=== PATIENT | female | born 1970 | race Caucasian/White ===

== ENCOUNTER 2019-06-09 10:21 | Inpatient (IN) | payer OTHER ==
[~2019-06-09] VITALS: Ht 160 cm; Wt 99.3 kg
[2019-06-09 10:25] VITALS: BP 141/89
--- NOTE | 2019-06-09 10:25 | NUR ---
PT INITIALLY VERBALLY ABUSIVE THE STAFF. SHE WAS INFORMED THIS WILL NOT BE TOLERATED. SHE VOICED UNDERSTANDING.
[2019-06-09 11:02] LABS: BASO % 0.6 % (0.0-1.0); EOS # 0.1 10*3/uL (0.0-0.4); EOS % 1.2 % (1.0-4.0); HEMATOCRIT 42.2 % (37.0-47.0); LYMPH # 1.6 10*3/uL (1.3-4.4); LYMPH % 23.8 % (27.0-41.0); MEAN CELL VOLUME 91.1 fl (81.0-99.0); MEAN CORPUSCULAR HGB 29.6 pg (27.0-31.0); MEAN CORPUSCULAR HGB CONC 32.5 g/dl (33.0-37.0); MEAN PLATELET VOLUME 9.2 fl (9.6-12.3); MONO # 0.2 10*3/uL (0.1-1.0); MONO % 3.3 % (3.0-9.0); NEUT # 4.7 10*3/uL (2.3-7.9); NEUT % 70.6 % (47.0-73.0); PLATELET COUNT AUTOMATED 398 10*3/uL (130-400); RED BLOOD COUNT 4.63 10*6/uL (4.10-5.10); RED CELL DISTRI WIDTH 13.2 % (0-14.5); WHITE BLOOD COUNT 6.7 10*3/uL (4.8-10.8)
[2019-06-09 11:12] LABS: ALBUMIN 3.1 gm/dl (3.1-4.5); ALKALINE PHOSPHATASE 63 U/L (45-117); BUN 9 mg/dl (7-24); CHLORIDE 110 mmol/L (98-107); CREATININE 0.82 mg/dL (0.55-1.02); LIPASE 46 U/L (73-393); POTASSIUM 4.2 mmol/L (3.5-5.1); SGOT/AST 14 IU/L (3-35); SGPT/ALT 21 U/L (12-78); SODIUM 139 mmol/L (136-145)
[2019-06-09 11:17] LABS: ACT PARTIAL THROMBO TIME 27.7 SECONDS (20.0-32.1); INTERNATIONAL NORM RATIO 0.9 (2.0-3.5)
--- NOTE | 2019-06-09 11:30 | NUR ---
PAIN IS BETTER AFTER MEDS.
--- NOTE | 2019-06-09 11:49 | NUR ---
AWAITING CULTURE DRAW TO HANG THE [facility]... NURSE KIE[facility] AT [facility]... OTHER ORDERED MEDS GIVEN. PATIENT REPORTS SPASM TO STOMACH. IN MODERATE DISTRESS. SAYS SHE HASN'T HAD A BM SINCE MONDAY AND SAYS STOMACH FEELS FULL OF GAS
--- NOTE | 2019-06-09 12:28 | NUR ---
MEDICATED WITH MORPHINE ORDERED FOR INCREASED PAIN.
[2019-06-09 12:30] VITALS: BP 117/74
--- NOTE | 2019-06-09 14:26 | NUR ---
REPORT TO MICHAEL. SHE WAS NOTIFIED PT WAS JUST MEDICATED WITH DILAUDID PRIOR TO BEING BROUGHT TO THE FLOOR.
[2019-06-09 14:30] VITALS: BP 119/66
--- NOTE | 2019-06-09 14:30 | NUR ---
Time: 1429 A 49 year old FEMALE admitted to 4E under services of ANDRESSA AN DO. Pt. arrived via stretcher from ER. Chief complaint: ABD PAIN . ALTAGRACIA AHUMADA
[2019-06-09] MEDS ORDERED: ZANAFLEX4 MG PO (14:59)
[2019-06-09] MEDS ORDERED: LIPITOR20 MG PO (15:01)
[2019-06-09] MEDS ORDERED: TRAZODONE150 MG PO (15:02)
[2019-06-09] MEDS ORDERED: MELOXICAM7.5 MG PO (15:02)
[2019-06-09] MEDS ORDERED: SYNTHROID25 MCG PO (15:04)
[2019-06-09] MEDS ORDERED: TRINTELLIX10 MG PEG (15:04)
[2019-06-09] MEDS ORDERED: METFORMIN HYD1000 MG PO (15:05)
[2019-06-09] MEDS ORDERED: METFORMIN HYDR500 MG PO (15:06)
[2019-06-09] MEDS ORDERED: ATIVAN1 MG PO (15:07)
[2019-06-09] MEDS ORDERED: VITAMIN D22000 UNIT PO (15:09)
--- NOTE | 2019-06-09 15:36 | NUR ---
SPOKE WITH DR BENNETT REGARDING CONSULT
--- NOTE | 2019-06-09 19:59 | NUR ---
NOTIFIED OF TEMP 101.2 AND ONLY ORAL TYLENOL ON. PER , PT IS TO HAVE ABSOLUTELY NOTHING BY MOUTH. NEW ORDER RECEIVED FOR RECTAL TYLENOL.
[2019-06-09 20:00] VITALS: BP 127/74
--- NOTE | 2019-06-09 20:40 | NUR ---
SPOKE WITH DR SIM REGARDING PATIENT CRYING IN PAIN AND MORPHINE NOT EFFECTIVE. STATES TO ORDER DILAUDID 1MG Q4H PRN. AND TO KEEP MORPHINE ORDER WELL
--- NOTE | 2019-06-09 21:00 | NUR ---
IV DILAUDID ADMINSTERED PER PRN ORDER FOR C/O ABD PAIN 11/29. MORPHINE INEFFECTIVE. WILL MONITOR EFFECTIVENESS. RECTAL TYLENOL ALSO ADMINISTERED FOR TEMP 101.2. WILL MONITOR EFFECTIVENESS. WET WASHCLOTHS & MOUTH SWABS PROVIDED PER REQUEST. PT REMINDED OF NEEDING URINE SAMPLE FOR UA^UC. CUP PLACED IN BATHROOM.
[2019-06-09 21:46] LABS: BILIRUBIN NEGATIVE (NEGATIVE); BLOOD 1+ (NEGATIVE); CLARITY CLOUDY (CLEAR); COLOR YELLOW (YELLOW); GLUCOSE NEGATIVE (NEGATIVE); KETONE NEGATIVE (NEGATIVE); NITRITE NEGATIVE (NEGATIVE); UROBILINOGEN 0.2 E.U./dl (0.2-1.0)
[2019-06-09 21:56] LABS: LEUKO ESTERASE NEGATIVE (NEGATIVE)
--- NOTE | 2019-06-09 22:07 | NUR ---
DAUGHTER CALLED IN WITH PASS CODE. UPDATED ON PLAN OF CARE.
--- NOTE | 2019-06-09 23:08 | NUR ---
REPEAT TEMP 98.9. EARLIER TYLENOL EFFECTIVE. EARLIER DILAUDID ALSO EFFECTIVE, PT RATING ABD PAIN 08/29. WILL MONITOR. CALL LIGHT IN REACH.
[2019-06-10] VITALS: BP 109/48
--- NOTE | 2019-06-10 00:05 | NUR ---
IV MORPHINE ADMINISTERED PER ORDER FOR C/O PAIN IN ABDOMEN RATED 7/10. WILL MONITOR, CALL LIGHT IN REACH.
--- NOTE | 2019-06-10 02:15 | NUR ---
EARLIER MORPHINE INEFFECTIVE PER PT. PT RATING ABD PAIN 10/30. IV DILAUDID ADMINISTERED PER PRN ORDER. IV ZOSYN INFUSION INITIATED. WILL MONITOR. CALL LIGHT IN REACH.
[2019-06-10 06:05] LABS: MEAN CELL VOLUME 91.8 fl (81.0-99.0); MEAN CORPUSCULAR HGB CONC 32.6 g/dl (33.0-37.0); MEAN PLATELET VOLUME 9.7 fl (9.6-12.3); PLATELET COUNT AUTOMATED 362 10*3/uL (130-400); RED BLOOD COUNT 4.14 10*6/uL (4.10-5.10); RED CELL DISTRI WIDTH 13.6 % (0-14.5); WHITE BLOOD COUNT 22.9 10*3/uL (4.8-10.8)
[2019-06-10 06:14] LABS: BUN 11 mg/dl (7-24); CHLORIDE 108 mmol/L (98-107); CHOLESTEROL 161 mg/dL (<200); CREATININE 0.92 mg/dL (0.55-1.02); HDL CHOLESTEROL 33 mg/dl (40-60); LDL CHOLESTEROL 107 mg/dL (9-159); POTASSIUM 3.6 mmol/L (3.5-5.1); SODIUM 138 mmol/L (136-145); TRIGLYCERIDES 107 mg/dl (<150); VLDL CHOLESTEROL 21 mg/dL (6-40)
[2019-06-10 06:35] LABS: ACT PARTIAL THROMBO TIME 31.3 SECONDS (20.0-32.1); INTERNATIONAL NORM RATIO 1.1 (2.0-3.5)
[2019-06-10 06:38] LABS: PLATELET SUFFICIENCY NORMAL (NORMAL); POLYCHROMASIA SLIGHT; TOTAL CELLS COUNTED 100 #CELLS
[2019-06-10 07:06] LABS: VITAMIN D, 25-HYDROXY 45.2 ng/mL (30-100)
--- NOTE | 2019-06-10 07:38 | NUR ---
PT REQUESTED AND GIVEN DILAUDID FOR C/O ABD PAIN . PT RATES PAIN 8/ WILL MONITOR
[2019-06-10 08:00] VITALS: BP 132/69
--- NOTE | 2019-06-10 09:00 | NUR ---
Oncology Physician Assistant in to talk to patient. Patient states lives at home with . There are no steps in the home. Physician: buck howard Pharmacy: [email or web address] Home health services: none Patient's level of ADLs: INDEPENDENT Patient has working utilities: all working DME: none Follow-up physician's appointment after d/c: will be made by hospsitalist nurse director upon discharge Does patient want to access PORTAL?: no Discharge plan discussed with patient, she lives at home with her hsuband, she states she is independent in adls and ambulation, works, drives, she states she will return home when medically stable and denies any home needs. NNAMDI ANDUJAR
--- NOTE | 2019-06-10 09:00 | NUR ---
PT STATES THAT JOSHUA HELPED WILL MONITOR
--- NOTE | 2019-06-10 11:32 | NUR ---
PT REQUESTED AND GIVEN DILAUDID FOR C/O ABD PAIN PT RATES PAIN 11/[address] BENNETT HERE TO SEE PT
[2019-06-10 12:00] VITALS: BP 134/78
--- NOTE | 2019-06-10 12:00 | NUR ---
PT STATES THAT JOSHUA HELPED WILL MONITOR
--- NOTE | 2019-06-10 14:10 | NUR ---
case management received a message that patient would need transfered to [facility] for high level of care for bowel perforation. spoke to Kristin from [employer] [facility] insurance, per Kristin, insurance is in network with [facility]. all information given and authorization number is [id number]. case management contacted [facility] med call and gave this authorization. [facility] will contact nursing unit when they have a bed available, case management contacted nursing floor
--- NOTE | 2019-06-10 15:51 | NUR ---
PT REQUESTED AND GIVEN DILAUDUD FOR C/O ABD PAIN WILL MONITOR PT STATES PAIN IS 10/30
--- NOTE | 2019-06-10 16:02 | NUR ---
REPORT CALLED TO [facility]
--- NOTE | 2019-06-10 16:21 | NUR ---
Discharge instructions reviewed with patient/family. Patient receptive and verbalizes understanding. Follow-up care arranged. Written instructions given to patient/family. ALTAGRACIA AHUMADA
== END 2019-06-10 16:21 | disposition short-term general hospital (02) | DRG 871 ==
LOC: ED 10:21 → 4E 13:10 → EDHOLD 13:10 → 4E 13:35
PROVIDERS: Emergency Medicine; Internal Medicine; ADMIT Internal Medicine
DX: A41.9 Sepsis, unspecified organism (principal); K63.1 Perforation of intestine (nontraumatic); E87.2 Acidosis; K57.32 Diverticulitis of large intestine without perforation or abscess without bleeding; E87.8 Other disorders of electrolyte and fluid balance, not elsewhere classified; R73.9 Hyperglycemia, unspecified; R00.0 Tachycardia, unspecified; R50.9 Fever, unspecified; D72.829 Elevated white blood cell count, unspecified; E83.51 Hypocalcemia; K57.90 Diverticulosis of intestine, part unspecified, without perforation or abscess without bleeding; E66.9 Obesity, unspecified; E78.5 Hyperlipidemia, unspecified; E53.8 Deficiency of other specified B group vitamins; K59.00 Constipation, unspecified; F32.9 Major depressive disorder, single episode, unspecified; F41.9 Anxiety disorder, unspecified; Z88.8 Allergy status to other drugs, medicaments and biological substances; Z98.891 History of uterine scar from previous surgery; Z83.49 Family history of other endocrine, nutritional and metabolic diseases; Z79.899 Other long term (current) drug therapy; Z68.38 Body mass index [BMI] 38.0-38.9, adult

== ENCOUNTER → 2019-12-18 | Outpatient (CLI) | payer OTHER ==
[~2019-12-18] MED LIST: ATIVAN1 MG PO; LIPITOR20 MG PO; MELOXICAM7.5 MG PO; METFORMIN HYD1000 MG PO; METFORMIN HYDR500 MG PO; SYNTHROID25 MCG PO; TRAZODONE150 MG PO; TRINTELLIX10 MG PEG; VITAMIN D22000 UNIT PO; ZANAFLEX4 MG PO
== END | disposition home or self-care (01) ==
LOC: COVID19 12:39
PROVIDERS: ATTEND Family Medicine
DX: R50.9 Fever, unspecified (principal); R53.83 Other fatigue; Z20.828 Contact with and (suspected) exposure to other viral communicable diseases

== ENCOUNTER → 2019-12-25 | Outpatient (CLI) | payer OTHER | END | disposition home or self-care (01) | LOC: MAMMO 07:51 | PROVIDERS: ATTEND Nurse Practitioner Women's Health | DX: R92.2 Inconclusive mammogram (principal); N64.89 Other specified disorders of breast; Z98.890 Other specified postprocedural states ==

== ENCOUNTER → 2020-04-08 | Outpatient (CLI) | payer OTHER | END | disposition home or self-care (01) | LOC: RAD 14:31 | PROVIDERS: ATTEND Family Medicine | DX: M47.812 Spondylosis without myelopathy or radiculopathy, cervical region (principal) ==

== ENCOUNTER → 2020-06-17 | Outpatient (CLI) | payer OTHER | END | disposition home or self-care (01) | LOC: CT 14:51 | PROVIDERS: ATTEND Family Medicine | DX: M89.319 Hypertrophy of bone, unspecified shoulder (principal); R22.2 Localized swelling, mass and lump, trunk ==

== ENCOUNTER → 2020-07-15 | Outpatient (CLI) | payer OTHER | END | disposition home or self-care (01) | LOC: ORTHO 01:42 | PROVIDERS: ATTEND Orthopaedic Surgery | DX: M89.8X1 Other specified disorders of bone, shoulder (principal) ==

== ENCOUNTER 2020-11-19 20:32 | Emergency (ER) | payer OTHER ==
[2020-11-19 22:39] LABS: BASO # 0.1 10*3/uL (0.0-0.1); BASO % 0.7 % (0.0-1.0); EOS # 0.2 10*3/uL (0.0-0.4); EOS % 1.5 % (1.0-4.0); HEMATOCRIT 36.3 % (37.0-47.0); LYMPH # 3.4 10*3/uL (1.3-4.4); LYMPH % 31.1 % (27.0-41.0); MEAN CORPUSCULAR HGB 29.6 pg (27.0-31.0); MEAN CORPUSCULAR HGB CONC 32.5 g/dl (33.0-37.0); MEAN PLATELET VOLUME 8.9 fl (9.6-12.3); MONO # 0.7 10*3/uL (0.1-1.0); MONO % 5.9 % (3.0-9.0); NEUT # 6.6 10*3/uL (2.3-7.9); NEUT % 60.3 % (47.0-73.0); PLATELET COUNT AUTOMATED 690 10*3/uL (130-400); RED BLOOD COUNT 3.99 10*6/uL (4.10-5.10); RED CELL DISTRI WIDTH 14.3 % (0-14.5)
[2020-11-19 22:52] LABS: BUN 13 mg/dl (7-24); CHLORIDE 104 mmol/L (98-107); POTASSIUM 3.9 mmol/L (3.5-5.1); SODIUM 139 mmol/L (136-145)
== END 2020-11-19 23:58 | disposition home or self-care (01) ==
LOC: ED 20:32
PROVIDERS: Internal Medicine
DX: M25.461 Effusion, right knee (principal); K59.00 Constipation, unspecified; Z79.899 Other long term (current) drug therapy; Z88.8 Allergy status to other drugs, medicaments and biological substances

== ENCOUNTER → 2020-12-07 | Outpatient (CLI) | payer OTHER | END | disposition home or self-care (01) | LOC: MRI 07:44 | PROVIDERS: ATTEND Orthopaedic Surgery | DX: S80.01XA Contusion of right knee, initial encounter (principal); X58.XXXA Exposure to other specified factors, initial encounter; Y93.89 Activity, other specified; Y92.89 Other specified places as the place of occurrence of the external cause; Y99.8 Other external cause status ==

== ENCOUNTER → 2022-12-28 | Outpatient (CLI) | payer OTHER | END | disposition home or self-care (01) | LOC: MAMMO 12-05 13:30 → CT 12-05 14:00 → MAMMO 07:30 | PROVIDERS: ATTEND Family Medicine | DX: Z12.31 Encounter for screening mammogram for malignant neoplasm of breast (principal) ==

== ENCOUNTER 2024-06-03 13:44 | Emergency (ER) | payer OTHER ==
[~2024-06-03] VITALS: Ht 157.4 cm; Wt 104.3 kg
[2024-06-03] MEDS ORDERED: SODIUM CHLORIDE 0.9% 1,000 ML IV ONE (14:10)
[2024-06-03 14:20] LABS: BASO % 0.3 % (0.0-1.0); EOS # 0.2 10*3/uL (0.0-0.4); EOS % 1.7 % (1.0-4.0); HEMATOCRIT 40.1 % (37.0-47.0); MEAN CELL VOLUME 88.1 fl (81.0-99.0); MEAN CORPUSCULAR HGB 28.6 pg (27.0-31.0); MEAN CORPUSCULAR HGB CONC 32.4 g/dl (33.0-37.0); MEAN PLATELET VOLUME 9.3 fl (9.6-12.3); MONO # 0.5 10*3/uL (0.1-1.0); MONO % 4.6 % (3.0-9.0); NEUT # 7.5 10*3/uL (2.3-7.9); NEUT % 65.1 % (47.0-73.0); PLATELET COUNT AUTOMATED 390 10*3/uL (130-400); RED BLOOD COUNT 4.55 10*6/uL (4.10-5.10); RED CELL DISTRI WIDTH 13.7 % (0-14.5); WHITE BLOOD COUNT 11.5 10*3/uL (4.8-10.8)
[2024-06-03 14:42] LABS: BUN 8 mg/dl (9-23); CHLORIDE 106 mmol/L (98-107); POTASSIUM 3.6 mmol/L (3.4-5.1)
[2024-06-03] MEDS ORDERED: ACETAMINOPHEN 325 MG TAB PO ONE (14:45)
[2024-06-03] MEDS ORDERED: Ketorolac Tromethamine 15 MG/ML VIAL IV ONE (14:45)
== END 2024-06-03 16:18 | disposition home or self-care (01) ==
LOC: ED 13:44
PROVIDERS: Nurse Practitioner Family
DX: U07.1 COVID-19 (principal); R51.9 Headache, unspecified; E86.0 Dehydration; F17.200 Nicotine dependence, unspecified, uncomplicated; Z88.8 Allergy status to other drugs, medicaments and biological substances; Z79.899 Other long term (current) drug therapy; Z79.84 Long term (current) use of oral hypoglycemic drugs; Z90.89 Acquired absence of other organs